=== PATIENT | female | born 1980 | race Caucasian/White ===

== ENCOUNTER 2023-06-26 09:01 | Emergency (ER) | payer BC ==
[2023-06-26] MEDS ORDERED: Ketorolac 30 MG/ML SDV IM ONE (09:31)
== END 2023-06-26 10:50 | disposition home or self-care (01) ==
LOC: JP.ED 09:01
DX: S93.402A Sprain of unspecified ligament of left ankle, initial encounter (principal); Z88.1 Allergy status to other antibiotic agents; Z88.5 Allergy status to narcotic agent; Z79.899 Other long term (current) drug therapy; W19.XXXA Unspecified fall, initial encounter
CPT/HCPCS: 73610; 96372; 99283; J1885